=== PATIENT | female | born 1965 | race Two or more races ===

== ENCOUNTER 2018-10-06 12:07 | Emergency (ER) | payer BC ==
[~2018-10-06] VITALS: Ht 167.6 cm; Wt 62.1 kg
[2018-10-06 12:15] VITALS: BP 117/68
--- NOTE | 2018-10-06 12:22 | NUR ---
SEEN AND EXAMINED BY ANNAMARIE GALAN
--- NOTE | 2018-10-06 12:52 | NUR ---
PT IS BACK FROM THE CT SCAN.
--- NOTE | 2018-10-06 13:42 | NUR ---
Patient discharged to home in stable condition. Written and verbal after care instructions given. Patient verbalizes understanding of instruction.
== END 2018-10-06 13:43 | disposition home or self-care (01) ==
LOC: ER 12:07
DX: S01.81XA Laceration without foreign body of other part of head, initial encounter (principal); S13.8XXA Sprain of joints and ligaments of other parts of neck, initial encounter; Z85.3 Personal history of malignant neoplasm of breast; Z98.890 Other specified postprocedural states; W01.0XXA Fall on same level from slipping, tripping and stumbling without subsequent striking against object, initial encounter; Y93.89 Activity, other specified; Y92.89 Other specified places as the place of occurrence of the external cause; Y99.8 Other external cause status
CPT/HCPCS: 12013; 70450; 72125; 99284; A6403

== ENCOUNTER 2018-10-09 13:23 | Emergency (ER) | payer BC ==
[2018-10-09] MEDS ORDERED: HYDROCODONE/APAP 5/325MG 1 EACH TABLET ONE (14:16)
[2018-10-09] MEDS ORDERED: HYDROCODONE/APAP 5/325MG 1 EACH TABLET PO ONE (14:30)
== END 2018-10-09 14:25 | disposition home or self-care (01) ==
DX: S06.0X0A Concussion without loss of consciousness, initial encounter (principal); S01.81XA Laceration without foreign body of other part of head, initial encounter; Z98.890 Other specified postprocedural states; Z85.3 Personal history of malignant neoplasm of breast; Z60.2 Problems related to living alone; W18.09XA Striking against other object with subsequent fall, initial encounter; Y93.89 Activity, other specified; Y92.89 Other specified places as the place of occurrence of the external cause; Y99.8 Other external cause status

== ENCOUNTER 2021-07-26 14:22 | Emergency (ER) | payer BC ==
[~2021-07-26] VITALS: Ht 165.1 cm; Wt 59.0 kg
--- NOTE | 2021-07-26 14:49 | NUR ---
To ER bed 2, c/o "Dont feel well started yesterday my Left arm feels numb shoulder-down Also feel dizzy when I look up room spins", aaox3, breathing even and non labored, connected to monitor, awaiting md gauthier
--- NOTE | 2021-07-26 14:55 | NUR ---
SALINE LOCK ESTABLISHED, BLOOD DRAWN, AND SENT TO LAB
[2021-07-26] MEDS ORDERED: MECLIZINE HCL 12.5 MG TABLET PO ONE (15:00)
[2021-07-26] MEDS ORDERED: IV NS 0.9% 1,000 ML BAG IV ONE (15:00)
[2021-07-26] MEDS ORDERED: MECLIZINE HCL 25 MG TABLET ONE (15:01)
[2021-07-26 15:24] LABS: BASOPHILS % (AUTO) 0.9 % (0.0-2.0); EOSINOPHILS % (AUTO) 3.3 % (0.0-6.0); HEMATOCRIT 44 % (33-45); HEMOGLOBIN 15.1 g/dL (11.5-14.8); LYMPHOCYTES # (AUTO) 1.9 K/uL (0.8-4.8); LYMPHOCYTES % (AUTO) 35.2 % (20.0-44.0); MEAN CORPUSCULAR HGB CONC 34 g/dl (31.0-36.0); MEAN CORPUSCULAR VOLUME 92 fL (82-100); MONOCYTES # (AUTO) 0.5 K/uL (0.1-1.30); NEUTROPHILS # (AUTO) 2.8 K/uL (1.8-8.9); NEUTROPHILS % (AUTO) 50.6 % (43.0-81.0); PLATELET COUNT (AUTO) 276 K/uL (150-450); RED BLOOD CELL COUNT(AUTO) 4.78 MIL/uL (4.0-5.2); WHITE BLOOD COUNT (AUTO) 5.4 K/uL (4.3-11.0)
[2021-07-26 15:36] LABS: ALBUMIN 4.4 g/dL (3.4-5.0); BILIRUBIN,DIRECT 0.1 mg/dL (0.0-0.2); BILIRUBIN,TOTAL 0.5 mg/dL (0.2-1.0); CALCIUM, SERUM 9.8 mg/dL (8.5-10.1); POTASSIUM 3.5 mmol/L (3.5-5.1); TOTAL PROTEIN, SERUM 8.1 g/dL (6.4-8.2)
--- NOTE | 2021-07-26 15:43 | NUR ---
TAKEN TO CT VIA PATTY
[2021-07-26] MEDS ORDERED: CT SWABBABLE VALVE TRANS SET 1 EA INFUS.SET MC ONE (15:45)
[2021-07-26] MEDS ORDERED: IOHEXOL-350 100 ML VIAL IV ONE (15:45)
[2021-07-26] MEDS ORDERED: IV NS 0.9% 250 ML IV ONE (15:46)
[2021-07-26] MEDS ORDERED: MECL-159 PO (16:46)
--- NOTE | 2021-07-26 17:12 | NUR ---
IV removed. Catheter intact and site benign. Pressure and 4x4 applied to site. No bleeding noted.Patient discharged to home in stable condition. Written and verbal after care instructions given. Patient verbalizes understanding of instruction.
[2021-07-26 17:13] VITALS: BP 131/80
== END 2021-07-26 17:13 | disposition home or self-care (01) ==
LOC: ER 14:28
DX: R42 Dizziness and giddiness (principal); R51.9 Headache, unspecified; Z20.822 Contact with and (suspected) exposure to COVID-19; R00.1 Bradycardia, unspecified; Z85.3 Personal history of malignant neoplasm of breast
CPT/HCPCS: 36415; 70496; 70498; 80048; 80076; 85025; 85652; 85730; 87426; 93005; 96360; 99285; C9803; J7050; J8597; Q9967